=== PATIENT | male | born 1950 | race African-American/Black ===

== ENCOUNTER 2022-04-23 20:30 | Inpatient (IN) | payer BC, MEDICAID ==
[~2022-04-23] VITALS: Ht 172.7 cm; Wt 112.9 kg
[~2022-04-23 20:30] MED LIST: ALD50 PO; CARV25TA47 PO; CHOL100044 GT; FURO-151 PO; INSU3INS6 SQ; RIVA20TA PO; entresto PO; novolog SUBCUT
[2022-04-23 21:54] LABS: BG CARBOXYHEMOGLOBIN 0.5 % (0.5-1.5); BG DEOXYHEMOGLOBIN 5.4 % (0.0-5.0); BG FRACTION INSPIRED OXYGEN 44; BG HCO3 ACT 20.5 mmol/L (22.0-26.0); BG METHEMOGLOBIN 0.5 % (0.0-1.5); BG OXYGEN SATURATION 94.5 % (92.0-98.5); BG OXYHEMOGLOBIN 93.6 % (94.0-97.0); BG PCO2 30.3 mmHg (35.0-45.0); BG PH 7.448 (7.350-7.450); BG PO2 66.8 mmHg (75.0-100.0); BG TOTAL HEMOGLOBIN 18.5 g/dL (12.0-18.0); BG VENT MODE NASAL CANNULA
[2022-04-23 21:59] LABS: BASOPHILS % 0.5 % (0.0-2.0); EOSINOPHILS % 0.8 % (0.0-5.0); HEMATOCRIT. 56.4 % (42.0-52.0); HEMOGLOBIN. 18.3 g/dL (14.0-18.0); LYMPHOCYTES % 7.2 % (20.0-50.0); MEAN CORPUSCULAR HEMOGLOBIN 30.6 pg (28.0-32.0); MEAN CORPUSCULAR VOLUME 94.4 fL (80.0-94.0); MEAN PLATELET VOLUME 10.3 fl (7.4-10.4); MONOCYTES % 9.6 % (2.0-8.0); NEUTROPHILS % 81.9 % (40.0-76.0); PLATELET 176 x1000/uL (130-400); RED BLOOD CELL COUNT 5.98 mill/uL (4.7-6.1); RED CELL DISTRIBUTION WIDTH 18.2 % (11.6-14.6)
[2022-04-23 22:07] LABS: CHLORIDE 105 mEq/L (98-107)
[2022-04-24] MEDS ORDERED: DEXTROSE 50% WATER 50ML SYRINGE IV ONE (02:22)
[2022-04-24] MEDS ORDERED: DEXTROSE 50% WATER 50ML SYRINGE IV NR (03:15)
[2022-04-24] MEDS ORDERED: IOHEXOL-350 100 ML BOTTLE ONE (03:56)
[2022-04-24 10:00] VITALS: BP 130/66
[2022-04-24] MEDS ORDERED: IPRATROPIUM/ALBUTEROL 0.5-3(2.5)MG/3ML NEB HHN PRN (11:00)
[2022-04-24] MEDS ORDERED: ONDANSETRON HCL 4MG/2ML INJ IV PRN (12:15)
[2022-04-24] MEDS ORDERED: CEFTRIAXONE 1 G PREMIX 50 ML IV SCH (13:15)
[2022-04-24] MEDS ORDERED: VANCOMYCIN 1,750 MG in DEXT 5% WATER 500 ML IV NR (15:00)
[2022-04-24] MEDS: FUROSEMIDE 40MG/4ML VIAL IVP SCH (15:08)
[2022-04-24] MEDS: CEFTRIAXONE 1,000 MG in DEXTROSE 5% WATER 50 ML IV SCH (15:09)
[2022-04-24 16:00] VITALS: BP 130/66
[2022-04-24] MEDS: BUDESONIDE 0.5MG/2ML NEB HHN SCH ×2 (16:28→20:28)
[2022-04-24] MEDS: IPRATROPIUM/ALBUTEROL 0.5-3(2.5)MG/3ML NEB HHN SCH ×2 (16:29→20:28)
[2022-04-24 20:00] VITALS: BP 162/99
[2022-04-24] MEDS: ACETAMINOPHEN 325MG TABLET PO PRN (23:22)
[2022-04-25] VITALS: BP 157/88
[2022-04-25] MEDS: IPRATROPIUM/ALBUTEROL 0.5-3(2.5)MG/3ML NEB HHN SCH ×4 (01:53→21:03)
[2022-04-25 04:00] VITALS: BP 124/73
[2022-04-25] MEDS: VANCOMYCIN 750MG PREMIX 150 ML IV SCH ×2 (04:16→15:55)
[2022-04-25 07:52] VITALS: BP 131/73
[2022-04-25] MEDS: BUDESONIDE 0.5MG/2ML NEB HHN SCH ×2 (09:35→21:03)
[2022-04-25] MEDS: FUROSEMIDE 40MG/4ML VIAL IVP SCH ×2 (09:52→16:03)
[2022-04-25 13:28] LABS: CHLORIDE 105 mEq/L (98-107)
[2022-04-25] MEDS ORDERED: METOLAZONE 2.5MG TABLET PO NR (14:30)
[2022-04-25] MEDS: CEFTRIAXONE 1,000 MG in DEXTROSE 5% WATER 50 ML IV SCH (15:55)
[2022-04-25 20:00] VITALS: BP 138/76
[2022-04-26] VITALS: BP 120/58
[2022-04-26] MEDS: IPRATROPIUM/ALBUTEROL 0.5-3(2.5)MG/3ML NEB HHN SCH ×4 (02:08→21:26)
[2022-04-26] MEDS: VANCOMYCIN 750MG PREMIX 150 ML IV SCH (02:41)
[2022-04-26 02:52] LABS: CHLORIDE 102 mEq/L (98-107)
[2022-04-26 02:59] LABS: VANCOMYCIN TROUGH 12.4 ug/mL (5.0-10.0)
[2022-04-26 04:00] VITALS: BP 147/71
[2022-04-26] MEDS ORDERED: DEXTROSE 50% WATER 50ML SYRINGE IV PRN (06:30)
[2022-04-26] MEDS: BLOOD SUGAR DIAGNOSTIC STRIP TEST SCH ×4 (06:36→20:44)
[2022-04-26] MEDS: BUDESONIDE 0.5MG/2ML NEB HHN SCH ×2 (07:36→21:26)
[2022-04-26 08:00] VITALS: BP 137/80
[2022-04-26] MEDS: FUROSEMIDE 40MG/4ML VIAL IVP SCH ×2 (09:12→17:04)
[2022-04-26] MEDS: ENOXAPARIN 30MG/0.3ML SYR SUBCUT SCH ×2 (09:12→21:01)
[2022-04-26] MEDS: INSULIN LISPRO 100 UNITS/ML SUBCUT SCH ×4 (09:23→21:04)
[2022-04-26 12:00] VITALS: BP 134/75
[2022-04-26] MEDS: TAMSULOSIN HCL 0.4MG SR CAPSULE PO SCH (12:40)
[2022-04-26] MEDS ORDERED: SITA100T11 PO (15:29)
[2022-04-26] MEDS ORDERED: LIP40 PO (15:29)
[2022-04-26] MEDS ORDERED: FURO80TA3 PO (15:30)
[2022-04-26] MEDS ORDERED: CARV25TA47 PO (15:30)
[2022-04-26] MEDS ORDERED: INSU100I28 SQ (15:31)
[2022-04-26] MEDS ORDERED: TRAZ-251 PO (15:32)
[2022-04-26] MEDS ORDERED: SACU1TAB PO (15:33)
[2022-04-26] MEDS ORDERED: RIVA20TA PO (15:33)
[2022-04-26 16:00] VITALS: BP 134/72
[2022-04-26] MEDS: CEFTRIAXONE 1,000 MG in DEXTROSE 5% WATER 50 ML IV SCH (17:04)
[2022-04-26] MEDS: VANCOMYCIN 1G PREMIX 200 ML IV SCH (17:07)
[2022-04-26 21:00] VITALS: BP 136/81
[2022-04-26] MEDS ORDERED: INSULIN LISPRO 100 UNITS/ML SUBCUT NR (21:00)
[2022-04-26] MEDS: ACETAMINOPHEN 325MG TABLET PO PRN (22:52)
[2022-04-27] MEDS: IPRATROPIUM/ALBUTEROL 0.5-3(2.5)MG/3ML NEB HHN SCH ×2 (02:00→08:40)
[2022-04-27 04:00] VITALS: BP 114/55
[2022-04-27] MEDS: VANCOMYCIN 1G PREMIX 200 ML IV SCH (04:11)
[2022-04-27] MEDS: BLOOD SUGAR DIAGNOSTIC STRIP TEST SCH ×2 (06:19→11:52)
[2022-04-27 07:13] LABS: CHLORIDE 101 mEq/L (98-107)
[2022-04-27] MEDS: INSULIN LISPRO 100 UNITS/ML SUBCUT SCH ×2 (07:50→12:04)
[2022-04-27 08:00] VITALS: BP 123/54
[2022-04-27] MEDS: BUDESONIDE 0.5MG/2ML NEB HHN SCH (08:40)
[2022-04-27] MEDS: ENOXAPARIN 30MG/0.3ML SYR SUBCUT SCH (09:06)
[2022-04-27] MEDS: TAMSULOSIN HCL 0.4MG SR CAPSULE PO SCH (09:07)
[2022-04-27] MEDS: FUROSEMIDE 40MG/4ML VIAL IVP SCH (09:07)
[2022-04-27] MEDS ORDERED: POTASSIUM CHLORIDE 20MEQ TABLET SR PO NR (11:00)
[2022-04-27] MEDS ORDERED: FURO80TA87 MT (11:18)
[2022-04-27] MEDS ORDERED: SULF1TAB48 MT (11:18)
[2022-04-27] MEDS ORDERED: AMOX1TAB16 MT (11:18)
[2022-04-27] MEDS ORDERED: TAMS-11 PO (11:18)
[2022-04-27] MEDS ORDERED: METO2.5T2 MT (11:59)
[2022-04-27 12:00] VITALS: BP 120/50
[2022-04-27] MEDS ORDERED: POTA-205 MT (12:00)
[2022-04-27 12:27] VITALS: BP 120/50
== END 2022-04-27 13:40 | disposition home or self-care (01) | DRG 291 ==
LOC: ER 20:30 → 3WST 23:16 → EDBEDREQ 23:48 → EDBEDREQTM 23:48
PROVIDERS: ADMIT Internal Medicine; ATTEND Internal Medicine
DX: I50.23 Acute on chronic systolic (congestive) heart failure (principal); J96.01 Acute respiratory failure with hypoxia; E44.0 Moderate protein-calorie malnutrition; L03.116 Cellulitis of left lower limb; R18.8 Other ascites; E66.9 Obesity, unspecified; K74.60 Unspecified cirrhosis of liver; J44.9 Chronic obstructive pulmonary disease, unspecified; E11.649 Type 2 diabetes mellitus with hypoglycemia without coma; I25.10 Atherosclerotic heart disease of native coronary artery without angina pectoris; Z88.8 Allergy status to other drugs, medicaments and biological substances; Z95.0 Presence of cardiac pacemaker; Z99.81 Dependence on supplemental oxygen; Z68.37 Body mass index [BMI] 37.0-37.9, adult
CPT/HCPCS: 36415; 36600; 71045; 71275; 80048; 80053; 80061; 80202; 82375; 82805; 82962; 83036; 83880; 84484; 85025; 93005; 93306; 93970; 94640; 99291; J0696; J1650; J1815; J1940; J3370; J7060; J7626; Q9967